=== PATIENT | female | born 1940 | race Caucasian/White ===

== ENCOUNTER 2019-07-19 12:23 | Emergency (ER) | payer OTHER, MEDICARE ==
[2019-07-19 12:37] VITALS: BP 140/65; PULSE 65; RESP 18; TEMP 97.5
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
[2019-07-19] MEDS ORDERED: HYDROcodone/APAP 5-325MG 1 EACH TAB PO STA (13:45)
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
[2019-07-19] MEDS ORDERED: ONDANSETRON ODT 4 MG TAB PO STA (15:04)
== END 2019-07-19 15:20 | disposition home or self-care (01) ==
LOC: EC 12:23
DX: S00.03XA Contusion of scalp, initial encounter (principal); R07.89 Other chest pain; Z79.82 Long term (current) use of aspirin; V43.52XA Car driver injured in collision with other type car in traffic accident, initial encounter; Y92.410 Unspecified street and highway as the place of occurrence of the external cause
CPT/HCPCS: 70450; 71046; 72125; 99284